=== PATIENT | female | born 2000 | race Hispanic/Latino ===

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

== ENCOUNTER 2024-01-21 05:10 | Emergency (ER) | payer SELFPAY ==
[~2024-01-21] VITALS: Ht 154.9 cm; Wt 90.7 kg
[2024-01-21 05:11] VITALS: TEMP 98.7
[2024-01-21] MEDS: NAPROXEN 500 MG TABLET PO ONE (05:27)
[2024-01-21 05:44] VITALS: BP 122/81; PULSE 51; RESP 18; O2SAT 100
[2024-01-21] MEDS ORDERED: NAPR-1196 PO (05:57)
== END 2024-01-21 06:49 | disposition home or self-care (01) ==
LOC: EDH 05:10
DX: S86.912A Strain of unspecified muscle(s) and tendon(s) at lower leg level, left leg, initial encounter (principal); X50.1XXA Overexertion from prolonged static or awkward postures, initial encounter; Y93.89 Activity, other specified; Y92.89 Other specified places as the place of occurrence of the external cause; Y99.8 Other external cause status
CPT/HCPCS: 29505; 73562